=== PATIENT | female | born 1970 ===

== ENCOUNTER 2017-01-29 16:46 | Emergency (ER) | payer OTHER ==
--- NOTE | 2017-01-29 17:20 | C.PDOC ---
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 Pain worsens intermittently, and associated with mild SOB and tingling in B/L hands. Patent denies cough, fever , palpitations, abdominal pain, nausea/vomiting. Symptoms improved prior to ED arrival. She denies cardiac history, DM, HTN, hyperlipidemia, smoking, and had no recent surgeries/immobilizations/travel. (+) family history of CAD, father. Time Seen by Provider: 01/29/17 16:55 Chief Complaint (Nursing): Chest Pain History Per: Patient History/Exam Limitations: no limitations Onset/Duration Of Symptoms: Hrs Current Symptoms Are (Timing): Still Present Severity: Mild Quality: Pressure, "Pain" Associated Symptoms: Dyspnea Past Medical History Reviewed: Historical Data, Nursing Documentation, Vital Signs Vital Signs: Last Vital Signs Temp 98.0 F 01/29/17 17:00 Pulse 65 01/29/17 17:00 Resp 20 01/29/17 17:00 BP 110/70 01/29/17 18:03 Pulse Ox 97 01/29/17 18:44 - Medical History PMH: Hypothyroidism Surgical History: Appendectomy, Cholecystectomy Family History: States: [place] (father), CAD - Social History Hx Alcohol Use: No Hx Substance Use: No - Immunization History Hx Tetanus Toxoid Vaccination: No Hx Influenza Vaccination: No Review Of Systems Except As Marked, All Systems Reviewed And Found Negative. Constitutional: Negative for: Fever, Chills Cardiovascular: Positive for: Chest Pain. Negative for: Palpitations Respiratory: Positive for: Shortness of Breath. Negative for: Cough Gastrointestinal: Negative for: Nausea, Vomiting, Abdominal Pain, Diarrhea Skin: Negative for: Rash Physical Exam - Physical Exam Appears: Well, Non-toxic, Other (anxious appearing, in mild pain) Skin: Normal Color, Warm, Dry, No Rash Head: Normacephalic Eye(s): bilateral: Normal Inspection Oral Mucosa: Moist Cardiovascular: Rhythm Regular Respiratory: Normal Breath Sounds, No Rales, No Rhonchi, No Wheezing Gastrointestinal/Abdominal: Normal Exam, Bowel Sounds, Soft, No Tenderness ED Course And Treatment - Laboratory Results Result Diagrams: 01/29/17 17:42 01/29/17 17:42 ECG: Interpreted By Me, Viewed By Me (NSR 65 bpm, normal axis, RBBB, no acute ST /T wave changes) ECG Interpretation: No Acute Changes O2 Sat by Pulse Oximetry: 97 (RA) Pulse Ox Interpretation: Normal - CT Scan/US CT ABD/PELVIS Other Rad Studies (CT/US): Read By Radiologist, Radiology Report Reviewed CT/US Interpretation: Accession No. : [id number]. Patient Name / ID : VIRGILIO [id number] / [id number]. Exam Date : 01/29/2017 15:31:19 ( Approved ). Study Comment : Sex / Age : F / [id number]. Creator : Hugo Leon MD. Dictator : Hugo Leon MD. T Rail Turner : Book Packer : Hugo Leon MD. Approver2 : Report Date : 01/29/2017 17:17:18. My Comment : . CT abdomen and pelvis. History: Diffuse abdominal pain. Comparison: None available. Technique: Multiple contiguous axial images were performed through the abdomen and pelvis with the use of intravenous contrast. Subsequently, sagittal and coronal reformatted images were obtained. This CT exam was performed using one or more of the following dose reduction techniques: Automated exposure control, adjustment of the mA and/or kV according to patient size, and/or use of iterative reconstruction technique. Findings: Scattered areas of atelectasis and consolidation in both lungs. Coronary calcifications. No pleural or pericardial effusion. Prominent liver with heterogeneous attenuation. Within the periphery of the right hepatic lobe there is a 2.1 centimeter low- attenuation lesion demonstrating a Hounsfield unit attenuation of -19 suggestive for a possible fat containing lesion. Correlation with multiphasic CT or MR may be helpful for further evaluation if clinically indicated. Gallbladder is preserved. Diminutive spleen. Nodularity of the adrenal glands. Pancreas is preserved. Small hiatal hernia. Mild nonspecific thickening of the proximal stomach. Right kidney: Midpole partially exophytic hypodensity measuring 1.5 centimeters demonstrating a Hounsfield unit attenuation of 26, indeterminate. Left Kidney: No calculi or hydronephrosis. Contrast in the collecting system. Distended urinary bladder. At the left lateral aspect of the urinary bladder there is a lobulated 3.4 centimeter low- attenuation lesion which appears contiguous with the left adnexa suggestive for a left adnexal cyst. Evaluation of the lower abdominal bowel demonstrates an underdistended and or mildly thickened descending colon. Mild thickening of the distal rectum and sigmoid colon, nonspecific. Appendix is within normal limits. Calcification and plaque within the aorta. Few shotty periaortic and mesenteric lymph nodes. Few shotty mesenteric lymph nodes. Degenerative changes in the spine. Grade 2 anterolisthesis of L4 on L5 with associated pars defects. Impression: 1. Mild underdistention and or mild thickening of the descending colon, distal sigmoid colon, and rectum. Clinical correlation. 2. Within the periphery of the right hepatic lobe there is a 2.1 centimeter low- attenuation lesion demonstrating a Hounsfield unit attenuation of -19 suggestive for a possible fat containing lesion. Correlation with multiphasic CT or MR may be helpful for further evaluation if clinically indicated. 3. Small hiatal hernia. Mild nonspecific thickening of the proximal stomach. 4. 3.4 centimeter left adnexal cyst. Additional findings as above. Progress Note: Blood work, CXR, EKG orderered and reviewed. Patient given SL nitro. Reevaluation Time: 18:45 Reassessment Condition: Improved (Patient reassessed, is currently resting comfortably, in no pain/distress. EKG without ishcemic changes, and tropnin and d-dimer (-). Patient is low risk for cardiac chest pain, will order repeat MAMTA at this time and reeval.) Disposition - Disposition Disposition Time: 19:00 Condition: STABLE - Clinical Impression Clinical Impression: Chest pain Physician Patient Turnover Patient Signed Over To: Farhat Broderick Handoff Comments: pending repeat MAMTA, reassess
[2017-01-29 17:46] LABS: BASO % 0.4 % (0.0-2.0); EOS % 0.8 % (0.0-4.0); HEMATOCRIT 40.3 % (34.0-47.0); LYMPH % 17.1 % (20.0-40.0); MEAN CELL VOLUME 85.8 fL (81.0-99.0); MEAN CORPUSCULAR HEMOGLOBIN 28.9 pg (27.0-31.0); MEAN CORPUSCULAR HGB CONC 33.7 g/dL (33.0-37.0); MEAN PLATELET VOLUME 8.2 fL (7.2-11.7); MONO # 0.3 K/uL (0.0-0.8); MONO % 5.5 % (0.0-10.0); RED CELL DISTRIBUTION WIDTH 13.4 % (11.5-14.5); WHITE BLOOD COUNT 5.8 K/uL (4.8-10.8)
[2017-01-29 17:55] LABS: CHLORIDE 98 mmol/L (98-107); POTASSIUM 3.7 mmol/L (3.6-5.2); SODIUM 135 mmol/L (132-148)
[2017-01-29 17:57] LABS: BILIRUBIN,TOTAL 1.2 mg/dL (0.2-1.3); CARBON DIOXIDE 26 mmol/L (22-30); GFR AFRICAN-AMERICAN > 60
[2017-01-29 17:58] LABS: ALB/GLOB RATIO 1.6 (1.0-2.1); ALKALINE PHOSPHATASE 74 U/L (38-126); ALT/SGPT 45 U/L (9-52); AST/SGOT 81 U/L (14-36); BLOOD UREA NITROGEN 10 mg/dL (7-17); CALCIUM 9.1 mg/dl (8.6-10.4); GLUCOSE,RANDOM 122 mg/dL (65-105); TOTAL PROTEIN 7.2 g/dL (6.3-8.3)
[2017-01-29 18:11] LABS: RBC URINE 61 /hpf (0-3); URINE BACTERIA MOD (<OCC); URINE BILIRUBIN NEGATIVE (NEGATIVE); URINE BLOOD NEGATIVE (NEGATIVE); URINE COLOR Yellow (YELLOW); URINE GLUCOSE (UA) NORMAL (Normal); URINE KETONE 1+ mg/dL (NEGATIVE); URINE LEUKOCYTE ESTERASE 3+ Leu/uL (Negative); URINE PROTEIN 1+ mg/dL (NEGATIVE); WBC URINE 169 /hpf (0-5)
[2017-01-29 18:29] LABS: THYROID STIMULATING HORMONE 0.45 mIU/L (0.46-4.68)
[2017-01-29 19:53] VITALS: BP 116/77; PULSE 72; RESP 16; TEMP 97.7; O2SAT 99
--- NOTE | 2017-01-30 07:27 | RAD ---
PROCEDURE: CHEST RADIOGRAPH, 1 VIEW HISTORY: Chest pain COMPARISON: None available. FINDINGS: LUNGS: Mild venous congestion. Right hilar prominence. PLEURA: No pneumothorax or pleural fluid seen. CARDIOVASCULAR: Normal. OSSEOUS STRUCTURES: No significant abnormalities. VISUALIZED UPPER ABDOMEN: Normal. OTHER FINDINGS: None. IMPRESSION: Mild venous congestion. Right hilar prominence.
--- NOTE | 2017-01-31 14:28 | CARD ---
APPROVED REPORT EKG Measurement Heart [id number] <Conclusion> Normal sinus rhythm Incomplete right bundle branch block Borderline ECG
== END 2017-01-29 19:59 | disposition home or self-care (01) ==
LOC: C.ER 16:46
DX: R07.9 Chest pain, unspecified (principal)